=== PATIENT | female | born 1950 | race Two or more races ===

== ENCOUNTER 2022-11-18 12:11 | Inpatient (IN) | payer MEDICARE ==
[~2022-11-18] VITALS: Ht 154.9 cm; Wt 62.6 kg
--- NOTE | 2022-11-18 12:15 | NUR ---
Patient arrived via [facility]. She is awake and alert. Denies pain at this moment. Placed raquel monitor. 12 lead EKG in process..
[2022-11-18 12:30] LABS: HEMATOCRIT 37.7 % (31.2-41.9); MEAN CORPUSCULAR HEMOGLOBIN 29.1 uug (24.7-32.8); MEAN CORPUSCULAR VOLUME 88.1 fL (75.5-95.3); PLATELET COUNT (AUTO) 355 K/uL (179-408)
[2022-11-18] MEDS ORDERED: METO-356 PO (12:36)
[2022-11-18] MEDS ORDERED: SENN-18 PO (12:36)
[2022-11-18] MEDS ORDERED: MAGN400T30 PO (12:36)
[2022-11-18] MEDS ORDERED: SACU1TAB PO (12:36)
[2022-11-18] MEDS ORDERED: INSU100V39 SQ (12:36)
[2022-11-18] MEDS ORDERED: [UNRECOGNIZED DRUG - CODE] MC (12:36)
[2022-11-18] MEDS ORDERED: FERR325T28 PO (12:36)
[2022-11-18] MEDS ORDERED: MAGN400O6 PO (12:36)
[2022-11-18] MEDS ORDERED: SIMV10TA98 PO (12:36)
[2022-11-18] MEDS ORDERED: CLOP75TA15 PO (12:36)
[2022-11-18] MEDS ORDERED: METF-440 PO (12:36)
[2022-11-18] MEDS ORDERED: CHOL400C8 PO (12:36)
[2022-11-18] MEDS ORDERED: TERI2.4P SUBCUT (12:36)
[2022-11-18] MEDS ORDERED: DOCU-141 PO (12:36)
[2022-11-18] MEDS ORDERED: POLY17PO4 PO (12:36)
[2022-11-18] MEDS ORDERED: CYAN100T44 PO (12:36)
[2022-11-18] MEDS ORDERED: ASPI81TA31 PO (12:36)
[2022-11-18 12:41] LABS: CREATININE 0.8 mg/dL (0.6-1.3); POTASSIUM 5.1 mmol/L (3.5-5.1)
[2022-11-18 12:53] LABS: BILIRUBIN,TOTAL 0.2 mg/dL (0.2-1.0); TOTAL PROTEIN, SERUM 7.2 g/dL (6.4-8.2)
--- NOTE | 2022-11-18 15:28 | NUR ---
PATIENT ATE VEGETABLES AND POTATOS. FAMILY AT BEDSIDE
[2022-11-18] MEDS ORDERED: MIRALAX 17 GM POWD.PACK PO PRN (16:00)
[2022-11-18] MEDS ORDERED: LACTOSE PO PRN (16:00)
[2022-11-18] MEDS ORDERED: SENNOSIDES 1 TABLET PO PRN (16:00)
[2022-11-18] MEDS ORDERED: DOCUSATE SODIUM 100 MG CAPSULE PO PRN (16:00)
[2022-11-18] MEDS ORDERED: MAGNESIUM HYDROXIDE 30 ML LIQUID UDC PO PRN ×2 (16:00→19:00)
[2022-11-18] MEDS ORDERED: sodium PO (17:18)
--- NOTE | 2022-11-18 17:40 | NUR ---
Patient is sitting upeating dinner with her . states she is not due for any medications at this time
--- NOTE | 2022-11-18 18:14 | NUR ---
Hand off report given to Mae KEEN
[2022-11-18] MEDS ORDERED: SACUBITRIL/VALSARTAN 24 MG-26 TABLET ONE (18:17)
[2022-11-18] MEDS ORDERED: DOCUSATE SODIUM 100 MG/10 ML LIQUID UDC PO PRN (18:45)
[2022-11-18] MEDS ORDERED: MELATONIN 3 MG TABLET PO PRN (19:00)
[2022-11-18] MEDS ORDERED: ACETAMINOPHEN 650 MG SUPP.RECT RC PRN (19:00)
[2022-11-18] MEDS: ASPIRIN 81 MG TAB.CHEW PO SCH (19:00)
[2022-11-18] MEDS: METFORMIN HCL 500 MG TABLET PO SCH (19:00)
[2022-11-18] MEDS: SACUBITRIL/VALSARTAN 24 MG-26 TABLET PO SCH (19:00)
[2022-11-18] MEDS: CLOPIDOGREL 75 MG TABLET PO SCH (19:00)
[2022-11-18] MEDS ORDERED: ONDANSETRON 4 MG/2 ML VIAL IV PRN (19:00)
--- NOTE | 2022-11-18 19:00 | NUR ---
Admitted patient in tele floor under the care of Dr Briceño, no sob no chest pain, sinus rhythm sinus tachy, denies pain, at bedside, patient with mild weakness on left hand and left leg, requires total assist with adl's, cont to monitor.
[2022-11-18 19:08] VITALS: BP 128/58
[2022-11-18] MEDS ORDERED: CAPTOPRIL 12.5 MG TABLET PO PRN (19:15)
[2022-11-18] MEDS ORDERED: hydrALAZINE HCL 25 MG TABLET PO PRN (19:15)
[2022-11-18] MEDS: SIMVASTATIN 10 MG TABLET PO SCH (21:29)
[2022-11-18] MEDS: METOPROLOL SUCCINATE XL 25 MG TAB.SR.24H PO SCH (21:29)
[2022-11-18 21:34] VITALS: BP 130/74
[2022-11-19] VITALS: BP 138/69
[2022-11-19 05:52] VITALS: BP 126/63
--- NOTE | 2022-11-19 06:52 | NUR ---
Patient awake, no sob no chest pain, denies pain, turn and reposition, rendered good hannah care,,v/s stable, no headaches, no dizziness, requires total assist with adl's cont to monitor.
[2022-11-19 06:53] LABS: HEMATOCRIT 37.2 % (31.2-41.9); MEAN CORPUSCULAR HEMOGLOBIN 29.1 uug (24.7-32.8); MEAN CORPUSCULAR VOLUME 88.4 fL (75.5-95.3); PLATELET COUNT (AUTO) 315 K/uL (179-408)
[2022-11-19 07:19] LABS: THYROID STIMULATING HORMONE 1.491 mIU/mL (0.358-3.740)
[2022-11-19 07:26] LABS: CREATININE 0.8 mg/dL (0.6-1.3); MAGNESIUM 1.5 mg/dL (1.8-2.4); PHOSPHOROUS 4.3 mg/dL (2.5-4.9); POTASSIUM 5.1 mmol/L (3.5-5.1)
--- NOTE | 2022-11-19 08:00 | NUR ---
RESTING COMFORTABLY IN BED NO SS OF PAIN OR DISTRESS. SR ON MONITOR
[2022-11-19] MEDS: CHOLECALCIFEROL 1,000 UNIT TABLET PO SCH (08:12)
[2022-11-19] MEDS: METFORMIN HCL 500 MG TABLET PO SCH ×2 (08:13→17:15)
[2022-11-19] MEDS: CYANOCOBALAMIN 100 MCG TABLET PO SCH (08:13)
[2022-11-19] MEDS: CULTURELLE CAPSULE PO SCH (08:13)
[2022-11-19] MEDS: ASPIRIN 81 MG TAB.CHEW PO SCH (08:13)
[2022-11-19] MEDS: METOPROLOL SUCCINATE XL 25 MG TAB.SR.24H PO SCH (08:16)
[2022-11-19] MEDS: SACUBITRIL/VALSARTAN 24 MG-26 TABLET PO SCH ×2 (08:17→17:16)
[2022-11-19] MEDS: CLOPIDOGREL 75 MG TABLET PO SCH (08:17)
[2022-11-19] MEDS ORDERED: TERIPARATIDE 20 MCG XX SCH (09:00)
[2022-11-19] MEDS: MAGNESIUM SULFATE/D5W 100 ML IV SCH ×3 (09:45→11:49)
--- NOTE | 2022-11-19 10:30 | NUR ---
SEEN BY PHYSICAL THERAPIST CHAI SENIOR SEE NOTES
[2022-11-19] MEDS: MAGNESIUM OXIDE 400 MG TABLET PO SCH (11:12)
[2022-11-19 11:46] VITALS: BP 96/50
--- NOTE | 2022-11-19 12:00 | NUR ---
NO ACUTE CHANGE FROM MORNING ASSESSMENT
[2022-11-19 15:01] LABS: *BILIRUBIN,URIN NEGATIVE (NEGATIVE); *BLOOD, URINE NEGATIVE (NEGATIVE); *CLARITY,URINE CLEAR (CLEAR); *COLOR,URINE YELLOW (YELLOW); *KETONES,URINE NEGATIVE (NEGATIVE); *UROBILINOGEN,URINE 0.2 E.U./dl (NORMAL); LEUKOCYTE ESTERASE ,URINE NEGATIVE (NEGATIVE); NITRITE, URINE NEGATIVE (NEGATIVE); PH,URINE 7.5 (5.0-8.0); UGLUCOSE NEGATIVE (NEGATIVE)
[2022-11-19 15:47] VITALS: BP 101/49
--- NOTE | 2022-11-19 18:23 | NUR ---
CONTIONUE WITH TELE MONITORING SR ON MONITOR
--- NOTE | 2022-11-19 19:35 | NUR ---
PATIENT AWAKE NO SOB NO CHEST PAIN, NO COMPLAIN OF PAIN, TELE SINUS RHYTHM AT THIS TIME, V/S STABLE, CALL LIGHT WITHIN REACH.
[2022-11-19 20:00] VITALS: BP 108/56
[2022-11-19] MEDS: SIMVASTATIN 10 MG TABLET PO SCH (21:27)
[2022-11-19] MEDS: METOPROLOL SUCCINATE XL 50 MG TAB.SR.24H PO SCH (21:28)
[2022-11-20] VITALS: BP 120/61
--- NOTE | 2022-11-20 00:30 | NUR ---
PATIENT COMPLAIN OF INABILITY TO SLEEP, OFFERED MELATONIN MEDS, BUT REFUSED, KEPT COMFORTABLE, CONT TO MONITOR.
[2022-11-20 04:00] VITALS: BP 110/58
--- NOTE | 2022-11-20 06:44 | NUR ---
Patient asleep but arousable, no sob no chest pain, tele sinus, no complain of pain,kept clean and dry, cont to monitor.
[2022-11-20 07:30] LABS: HEMATOCRIT 35.6 % (31.2-41.9); MEAN CORPUSCULAR HEMOGLOBIN 29.5 uug (24.7-32.8); MEAN CORPUSCULAR VOLUME 88.1 fL (75.5-95.3); PLATELET COUNT (AUTO) 322 K/uL (179-408)
--- NOTE | 2022-11-20 08:00 | NUR ---
AWAKE ALERT AND VERBALLY RESPONSIVE, ABLE TO ANSWER SIMPLE QUESTIONS . CONTINUE TELE MONITORING
[2022-11-20 08:03] LABS: CREATININE 0.9 mg/dL (0.6-1.3); MAGNESIUM 2.1 mg/dL (1.8-2.4); PHOSPHOROUS 4.2 mg/dL (2.5-4.9); POTASSIUM 4.9 mmol/L (3.5-5.1)
[2022-11-20] MEDS: CULTURELLE CAPSULE PO SCH (08:40)
[2022-11-20] MEDS: CYANOCOBALAMIN 100 MCG TABLET PO SCH (08:41)
[2022-11-20] MEDS: METFORMIN HCL 500 MG TABLET PO SCH ×2 (08:41→17:28)
[2022-11-20] MEDS: ASPIRIN 81 MG TAB.CHEW PO SCH (08:41)
[2022-11-20] MEDS: CLOPIDOGREL 75 MG TABLET PO SCH (08:41)
[2022-11-20] MEDS: MAGNESIUM OXIDE 400 MG TABLET PO SCH (08:41)
[2022-11-20] MEDS: CHOLECALCIFEROL 1,000 UNIT TABLET PO SCH (08:42)
[2022-11-20] MEDS: SACUBITRIL/VALSARTAN 24 MG-26 TABLET PO SCH ×2 (08:52→17:28)
[2022-11-20] MEDS: METOPROLOL SUCCINATE XL 50 MG TAB.SR.24H PO SCH ×2 (09:07→20:21)
--- NOTE | 2022-11-20 11:00 | NUR ---
SEEN BY PT AND OT FOR EXERCISES AND EVAL, SEE NOTES
[2022-11-20 11:55] VITALS: BP 95/45
--- NOTE | 2022-11-20 12:00 | NUR ---
NO ACUTE CHANGE FROM MORNING ASSESSMENT
[2022-11-20 15:43] VITALS: BP 97/53
--- NOTE | 2022-11-20 18:27 | NUR ---
PATIENT RESTING MOST OF THE SHIFT, REQUIRES TOTAL CARE IN ALL AREAS BUT PARTIAL FEEDR, NO SS OF ASPIRATION. SR ON MONITOR
--- NOTE | 2022-11-20 19:35 | NUR ---
Patient in bed, no sob no chest pain, no complain of pain, incontinent of bowel and bladder, purewick was placed by AM RN, urine in moderate amount yellow lisa color. cont to monitor.
[2022-11-20 20:00] VITALS: BP 102/50
[2022-11-20] MEDS: SIMVASTATIN 10 MG TABLET PO SCH (20:22)
[2022-11-21] VITALS: BP 110/55
[2022-11-21] MEDS ORDERED: SENN-18 PO (00:04)
[2022-11-21] MEDS ORDERED: CLOP75TA15 PO (00:04)
[2022-11-21] MEDS ORDERED: METO-357 PO (00:04)
[2022-11-21] MEDS ORDERED: SACU1TAB PO ×2 (00:04)
[2022-11-21] MEDS ORDERED: CHOL100062 PO (00:04)
[2022-11-21] MEDS ORDERED: DOCU-141 PO (00:04)
[2022-11-21] MEDS ORDERED: TERIPARATIDE XX (00:04)
[2022-11-21] MEDS ORDERED: CHOL400C8 PO (00:04)
[2022-11-21] MEDS ORDERED: POLY17PO4 PO (00:04)
[2022-11-21] MEDS ORDERED: ACET650S13 RC (00:04)
[2022-11-21] MEDS ORDERED: MELA3TAB41 PO (00:04)
[2022-11-21] MEDS ORDERED: HYDR-894 PO (00:04)
[2022-11-21] MEDS ORDERED: FERR325T28 PO (00:04)
[2022-11-21] MEDS ORDERED: ONDA4VIA23 PO (00:04)
[2022-11-21] MEDS ORDERED: SIMV10TA98 PO (00:04)
[2022-11-21] MEDS ORDERED: MAGN400O6 PO ×2 (00:04)
[2022-11-21] MEDS ORDERED: LACT1CAP57 PO (00:04)
[2022-11-21] MEDS ORDERED: METF-440 PO (00:04)
[2022-11-21] MEDS ORDERED: [UNRECOGNIZED DRUG - CODE] MC (00:04)
[2022-11-21] MEDS ORDERED: MAGN400T30 PO (00:04)
[2022-11-21] MEDS ORDERED: ASPI81TA31 PO (00:04)
[2022-11-21] MEDS ORDERED: CYAN100T44 PO (00:04)
[2022-11-21] MEDS ORDERED: TERI2.4P SUBCUT (00:10)
--- NOTE | 2022-11-21 03:38 | NUR ---
Patient asleep, but arousable, no sob no chest pain, no complain of pain, complain of insomnia, but refused to take sleeping meds, refused to take any meds. Patient kept clean and dry, turn and reposition, call light within reach. cont to monitor.
[2022-11-21 04:00] VITALS: BP 112/62
--- NOTE | 2022-11-21 06:48 | NUR ---
patient refused lab works, gets agitated.
[2022-11-21 08:00] LABS: HEMATOCRIT 37.1 % (31.2-41.9); MEAN CORPUSCULAR HEMOGLOBIN 29.4 uug (24.7-32.8); MEAN CORPUSCULAR VOLUME 88.1 fL (75.5-95.3); PLATELET COUNT (AUTO) 297 K/uL (179-408)
[2022-11-21] MEDS: CHOLECALCIFEROL 1,000 UNIT TABLET PO SCH (08:36)
[2022-11-21] MEDS: ASPIRIN 81 MG TAB.CHEW PO SCH (08:36)
[2022-11-21] MEDS: CYANOCOBALAMIN 100 MCG TABLET PO SCH (08:36)
[2022-11-21] MEDS: CULTURELLE CAPSULE PO SCH (08:36)
[2022-11-21] MEDS: METFORMIN HCL 500 MG TABLET PO SCH (08:37)
[2022-11-21] MEDS: CLOPIDOGREL 75 MG TABLET PO SCH (08:37)
[2022-11-21] MEDS: METOPROLOL SUCCINATE XL 50 MG TAB.SR.24H PO SCH (08:39)
[2022-11-21] MEDS: MAGNESIUM OXIDE 400 MG TABLET PO SCH (08:40)
[2022-11-21] MEDS: SACUBITRIL/VALSARTAN 24 MG-26 TABLET PO SCH (08:42)
[2022-11-21 09:29] LABS: CREATININE 0.8 mg/dL (0.6-1.3); MAGNESIUM 1.8 mg/dL (1.8-2.4); PHOSPHOROUS 4.5 mg/dL (2.5-4.9); POTASSIUM 4.6 mmol/L (3.5-5.1)
[2022-11-21 11:16] VITALS: BP 109/58
[2022-11-21] MEDS ORDERED: GLUCERNA SHAKE 237 ML CAN PO SCH (11:45)
--- NOTE | 2022-11-21 16:43 | NUR ---
Pt. discharged to [facility]. Noted to be stable upon the discharge. No acute distress noted. All necessary document signed. All personal belonging returned to the patient. Called [facility] and report given to RN.
== END 2022-11-21 16:45 | DRG 291 ==
LOC: ER 12:11 → TELE3 18:40 → MEDSURG3 11-21 09:10
PROVIDERS: ADMIT Internal Medicine; ATTEND Internal Medicine
DX: I11.0 Hypertensive heart disease with heart failure (principal); I50.33 Acute on chronic diastolic (congestive) heart failure; I16.0 Hypertensive urgency; Z86.16 Personal history of COVID-19; Z86.73 Personal history of transient ischemic attack (TIA), and cerebral infarction without residual deficits; E78.5 Hyperlipidemia, unspecified; Z79.82 Long term (current) use of aspirin; Z79.84 Long term (current) use of oral hypoglycemic drugs; I42.9 Cardiomyopathy, unspecified; E11.9 Type 2 diabetes mellitus without complications; D64.9 Anemia, unspecified; I49.3 Ventricular premature depolarization; Z74.01 Bed confinement status
CPT/HCPCS: 36415; 71045; 83550; 83735; 84100; 84443; 84484; 85025; 93005; 93307; A4663; G0378; J3475